=== PATIENT | female | born 1955 | race Asian ===

== ENCOUNTER 2022-12-29 08:00 | Outpatient (CLI) | payer MEDICARE, BC ==
--- NOTE | 2022-12-29 14:22 | XRAY Report ---
PROCEDURE: Wrist 3 View LT INDICATIONS: LEFT WRIST SPRAIN TECHNIQUE: 3 views of the wrist were acquired. COMPARISON: None. FINDINGS: Bones: No fractures or dislocations. No suspicious bony lesions. Scaphoid view: Not applicable. Soft tissues: No suspicious soft tissue calcifications or masses. IMPRESSION: No acute bony abnormality. Reviewed by: Les Jansen on 12/29/2022 2:21 PM PDT Approved by: Les Jansen on 12/29/2022 2:21 PM PDT Station ID: [id number]
== END 2022-12-29 23:59 | disposition home or self-care (01) ==
LOC: DI.S 08:00
PROVIDERS: ATTEND Emergency Medicine
DX: S63.522A Sprain of radiocarpal joint of left wrist, initial encounter (principal)